=== PATIENT | male | born 1970 | race Caucasian/White ===

== ENCOUNTER 2023-08-22 01:27 | Emergency (ER) | payer BC ==
[~2023-08-22] VITALS: Ht 172.7 cm; Wt 79.8 kg
[2023-08-22 02:01] VITALS: BP_SYST 174; PULSE 71; RESP 20; TEMP 97.8; O2SAT 97
[2023-08-22] MEDS: NACL 0.9% 1,000 ML IV ONE (02:13)
[2023-08-22] MEDS: MORPHINE 4 MG INJ. 4 MG/ML VIAL IVP ONE (02:15)
[2023-08-22] MEDS: KETOROLAC TROMETHAMINE 15 MG VIAL IVP ONE (02:16)
[2023-08-22 02:33] LABS: BASOPHILS # (AUTO) 0.1 K/uL (0.0-0.2); BASOPHILS % (AUTO) 0.9 % (0.0-2.0); EOSINOPHILS # (AUTO) 0.2 K/uL (0.0-0.4); EOSINOPHILS % (AUTO) 3.3 % (0.0-4.0); LYMPHOCYTES # (AUTO) 1.8 K/uL (1.0-5.5); LYMPHOCYTES % (AUTO) 30.7 % (20.5-51.5); MEAN CORPUSCULAR HEMOGLOBIN 30 pg (27-31); MEAN CORPUSCULAR HGB CONC 35 % (32-36); MEAN CORPUSCULAR VOLUME 86 fL (79.0-98.0); MONOCYTES # (AUTO) 0.6 K/uL (0.0-1.0); NEUTROPHILS # (AUTO) 3.2 K/uL (1.8-7.7); NEUTROPHILS % (AUTO) 54.1 % (40.0-70.0); PLATELET COUNT (AUTO) 208 K/uL (130-430); RED CELL DISTRIBUTION WIDTH 13.8 % (9.0-15.0); WHITE BLOOD COUNT (AUTO) 5.8 K/uL (4.8-10.8)
[2023-08-22 03:00] LABS: ALBUMIN 4.1 g/dL (3.4-4.8); BILIRUBIN,DIRECT 0.1 mg/dL (0.0-0.3); CALCIUM 8.4 mg/dL (8.4-11.0); CREATININE 0.92 mg/dL (0.55-1.30); POTASSIUM 3.7 mmol/L (3.5-5.1); TOTAL BILIRUBIN 0.8 mg/dL (0.0-1.0); TOTAL PROTEIN, SERUM 7.4 g/dL (6.4-8.3)
[2023-08-22 03:50] LABS: BILIRUBIN,URINE NEGATIVE (NEGATIVE); BLOOD, URINE 3+ (NEGATIVE); COLOR,URINE YELLOW (YELLOW); GLUCOSE,URINE NEGATIVE (NEGATIVE); KETONES,URINE NEGATIVE (NEGATIVE); LEUKOCYTE ESTERASE ,URINE NEGATIVE (NEGATIVE); NITRITE, URINE NEGATIVE (NEGATIVE); PROTEIN URINE NEGATIVE (NEGATIVE); UROBILINOGEN,URINE 0.2 (0.2-1.0)
[2023-08-22 04:00] LABS: CLARITY/URINE SLIGHTLY CLOUDY (CLEAR)
[2023-08-22 04:01] LABS: RBC,URINE >100 /HPF (0-3); WBC,URINE 0-3 /HPF (0-3)
[2023-08-22 04:02] LABS: BACTERIA,URINE None Seen /HPF (None Seen)
[2023-08-22] MEDS ORDERED: IBUP-1969 PO (04:39)
[2023-08-22 04:57] VITALS: BP_SYST 133; PULSE 71; RESP 20; TEMP 98.4; O2SAT 97
== END 2023-08-22 04:57 | disposition home or self-care (01) ==
LOC: SED 01:27
DX: N20.0 Calculus of kidney (principal); R31.9 Hematuria, unspecified; R10.31 Right lower quadrant pain; E86.0 Dehydration; Z79.899 Other long term (current) drug therapy; Z98.890 Other specified postprocedural states
CPT/HCPCS: 99285; 74176; 96374; 96361; 96375; 80076; 80048; 81001; 83690; 85025; 36415; 76376; J1885; J2270; J7030; 81000; 81015